=== PATIENT | male | born 1990 | race Caucasian/White ===

== ENCOUNTER 2019-01-09 17:21 | Emergency (ER) | payer SELFPAY ==
[2019-01-09 17:25] VITALS: BP 142/94
--- NOTE | 2019-01-09 17:28 | ER Report ---
History and Physical Time Seen By MD: 17:25 HPI/ROS CHIEF COMPLAINT: Foot injury HISTORY OF PRESENT ILLNESS: This is a 28-year-old male who presents to the emergency department for a foot injury. Patient states that about 2 days ago he was tubing and some water, as he was getting out and kicking he hit the top of his foot on a rock, noted to have a small abrasion to the top of the foot as well as a small open callused area to the bottom of the right foot. He states he cleaned the wound with one of peroxide, has applied amide appointment to the wound over he's noticed there is some increased swelling and redness to the top of the foot. Does cause some discomfort with ambulation. No fevers or chills. No nausea or vomiting. He also has some small abrasions noted to the bottom of the left foot, no surrounding erythema or cellulitis. REVIEW OF SYSTEMS: Respiratory: No cough, no dyspnea. Cardiovascular: No chest pain, no palpitations. Gastrointestinal: No vomiting, no abdominal pain. Musculoskeletal: As above. Integument rate: As above. Allergies: Coded Allergies: Sulfa (Sulfonamide Antibiotics) (Verified Allergy, Intermediate, 01/09/19) Home Meds Active Scripts Ciprofloxacin Hcl 500 Mg Tab (CIPRO 500 MG TAB) 500 Mg Tablet, 500 MG PO BID for 10 Days, #20 TAB 0 Refills Prov:RAMONA JENKINS [employer]MI[employer]- 01/09/19 Past Medical/Surgical History Patient has a past medical and surgical history of right ankle surgery secondary to trauma. Reviewed Nurses Notes: Yes Constitutional Vital Sign - Last 24 Hours 01/09/19 01/09/19 01/09/19 17:25 17:30 18:00 Temp 98.0 Pulse 69 72 59 Resp 20 B/P (MAP) 142/94 Pulse Ox 95 94 94 O2 Delivery Room Air Physical Exam General Appearance: The patient is alert, has no immediate need for airway protection and no current signs of toxicity. Eyes: Pupils equal and round no injection. Respiratory: Chest is non tender, lungs are clear to auscultation. Cardiac: regular rate and rhythm. Gastrointestinal: Abdomen is soft and non tender, no masses, bowel sounds normal. Musculoskeletal: Neck: Neck is supple and non tender. Extremities swelling to the dorsum of the right foot into the right lateral ankle. Skin: Mild erythema and the start of cellulitis around the abrasion. There is a large scar to the right medial foot this is from when he was a child. DIFFERENTIAL DIAGNOSIS: After history and physical exam differential diagnosis was considered for abrasion, fracture, cellulitis. Medical Decision Making EKG/Imaging Imaging PATIENT NAME: Kevin Merrill : 1990 MR: [id number] V: [id number] EXAM DATE: ORDERING PHYSICIAN: RAMONA JENKINS TECHNOLOGIST: Location: [facility] Patient: Kevin Merrill : 1990 Visit/Account:[id number] Date of Sevice: 01/09/2019 FOOT 3 VIEWS RIGHT HISTORY: foot injury, swelling Three-view examination the right foot. FINDINGS: No acute bony pathology. Joint spaces well-maintained. Mild soft tissue swelling over the dorsum of foot IMPRESSION: 1. Negative right foot for acute bony pathology. Mild dorsal soft tissue swelling. Report Dictated By: Cassius Perez MD at 01/09/2019 6:05 PM Report E-Signed By: Cassius Perez MD at 01/09/2019 6:07 PM WSN:[email or web address] ED Course/Re-evaluation ED Course The patient was admitted to room. A history and physical were obtained. Differential diagnoses were considered. An x-ray of the right foot was negative for any acute osseous abnormalities. Did review these results with the patient. He was given a prescription for Cipro, he is started on Cipro while in the emergency department. She was encouraged to monitor closely for signs of worsening infection. He was encouraged to follow-up with his primary care provider, return to the ER for any other concerns or worsening symptoms. Patient was understanding discharged home. Decision to Disposition Date: Jan 09, 2019 Decision to Disposition Time: 18:15 Depart Departure Latest Vital Signs Vital Signs Date Time Temp Pulse Resp B/P (MAP) Pulse Ox O2 Delivery O2 Flow Rate FiO2 01/09/19 18:00 59 94 01/09/19 17:25 98.0 20 142/94 Room Air Impression: Primary Impression: Cellulitis of right foot Condition: Improved Disposition: HOME OR SELF-CARE New Scripts Ciprofloxacin Hcl 500 Mg Tab (CIPRO 500 MG TAB) 500 Mg Tablet 500 MG PO BID for 10 Days, #20 TAB 0 Refills Prov: RAMONA JENKINS-BC 01/09/19 Patient Instructions: Cellulitis (ED) Additional Instructions: Please take the antibiotics as prescribed. Continue to monitor closely for worsening infection. The wound may look the same or slightly worse for the next 48-72 hours, but if looks significantly worse with pus or red streaks moving up your leg, follow up in the nearest ER immediately. Get plenty of rest. Ibuprofen or Tylenol as needed for pain. Keep the foot elevated as much as possible. Drink plenty of water. Return to the ED for any other concerns or worsening symptoms. RAMONA JENKINSP-BC Jan 09, 2019 17:28
--- NOTE | 2019-01-09 18:13 | RADIOLOGY IMAGING REPORT ---
FACILITY: [facility] PATIENT NAME: Kevin Merrill : 1990 MR: [id number] V: [id number] EXAM DATE: ORDERING PHYSICIAN: RAMONA JENKINS TECHNOLOGIST: Location: [facility] [place] Patient: Kevin Merrill : 1990 Visit/Account:[id number] Date of Sevice: 01/09/2019 FOOT 3 VIEWS RIGHT HISTORY: foot injury, swelling Three-view examination the right foot. FINDINGS: No acute bony pathology. Joint spaces well-maintained. Mild soft tissue swelling over the dorsum of foot IMPRESSION: 1. Negative right foot for acute bony pathology. Mild dorsal soft tissue swelling. Report Dictated By: Cassius Perez MD at 01/09/2019 6:05 PM Report E-Signed By: Cassius Perez MD at 01/09/2019 6:07 PM WSN:[id number]
[2019-01-09] MEDS ORDERED: CIPR-344 PO (18:22)
[2019-01-09] MEDS ORDERED: CIPROFLOXACIN 500 MG TAB PO ONE (18:25)
== END 2019-01-09 18:33 | disposition home or self-care (01) ==
LOC: ER 17:28
DX: L03.115 Cellulitis of right lower limb (principal)
CPT/HCPCS: 99283